=== PATIENT | male | born 1980 | race Caucasian/White ===

== ENCOUNTER 2017-07-07 22:38 | Emergency (ER) | payer OTHER ==
[2017-07-07] MEDS ORDERED: ASPIRIN 81 MG TABLET, CHEWABLE PO ONE (22:50)
[2017-07-07] MEDS ORDERED: LORAZEPAM INJ 2 MG/1 ML VIAL IV ONE (23:01)
--- NOTE | 2017-07-07 23:19 | ER Document Report ---
ED Cardiac - General Mode of Arrival: Ambulatory Information source: Patient TRAVEL OUTSIDE OF THE [place] IN LAST 30 DAYS: No <JANESSA PERALES - Last Filed: 07/07/17 23:29> <JUAN C ZACARIAS - Last Filed: 07/08/17 03:16> - General Chief Complaint: Chest Pain Stated Complaint: CHEST PAIN Time Seen by Provider: 07/07/17 22:50 Notes: Patient is a 36 year old male that presents to the emergency department today with complaints of chest pain with a heart racing sensation. Patient states he was cleaning out his closet when these symptoms began. Patient states he did not have any bad thoughts or unusual findings in the closet that he could relate to causing this sensation. Patient denies nausea, vomiting, fevers, or chills. Patient states he has never been diagnosed with anxiety but he "knows he has it". Patient mentions drinking two glasses of wine prior to arrival. ( JANESSA PERALES) - Related Data Allergies/Adverse Reactions: No Known Allergies Allergy (Unverified 07/07/17 22:46) Past Medical History - General Information source: Patient - Social History Smoking Status: Never Smoker Cigarette use (# per day): No Frequency of alcohol use: None Drug Abuse: None Lives with: Family Family History: Reviewed & Not Pertinent Psychiatric Medical History: Reports: Hx Anxiety Surgical Hx: Negative <JANESSA PERALES - Last Filed: 07/07/17 23:29> Review of Systems - Review of Systems Constitutional: No symptoms reported EENT: No symptoms reported Cardiovascular: See HPI, Palpitations, Heart racing Respiratory: No symptoms reported Gastrointestinal: No symptoms reported Genitourinary: No symptoms reported Male Genitourinary: No symptoms reported Musculoskeletal: No symptoms reported Skin: No symptoms reported Hematologic/Lymphatic: No symptoms reported Neurological/Psychological: See HPI, Anxiety -: Yes All other systems reviewed and negative <JANESSA PERALES - Last Filed: 07/07/17 23:29> Physical Exam <JANESSA PERALES - Last Filed: 07/07/17 23:29> <JUAN C ZACARIAS - Last Filed: 07/08/17 03:16> - Vital signs Vitals: Pulse Ox 100 07/07/17 22:50 - Notes Notes: Physical Exam: General: Alert, appears well. HEENT: Normocephalic. Atraumatic. PERRL. Extraocular movements intact. Oropharynx clear. Neck: Supple. Non-tender. Respiratory: No respiratory distress. Clear and equal breath sounds bilaterally. Cardiovascular: Regular rhythm, tachycardic into the mid 120s, when monitor is turned away from the patient he drops into the low 100s. Abdominal: Normal Inspection. Non-tender. No distension. Normal Bowel Sounds. Back: Non-tender. No deformity or step off. Extremities: Moves all four extremities. Upper extremities: Normal inspection. Normal ROM. Lower extremities: Normal inspection. No edema. Normal ROM. Neurological: Normal cognition. AAOx4. Normal speech. Psychological: Appears anxious. Skin: Warm. Dry. Normal color. (JANESSA PERALES) Course - Laboratory Result Diagrams: 07/07/17 23:21 07/07/17 23:21 <JANESSA PERALES - Last Filed: 07/07/17 23:29> - Laboratory Result Diagrams: 07/07/17 23:21 07/07/17 23:21 <JUAN C ZACARIAS - Last Filed: 07/08/17 03:16> - Re-evaluation Re-evalutation: 07/08/17 03:16 The patient has atypical chest pain as the patient's chest pain is not suggestive of pulmonary embolus, cardiac ischemia, aortic dissection, or other serious etiology. Given the extremely low risk of these diagnoses further testing and evaluation for these possibilities does not appear to be indicated at this time. The patient has been instructed to return if the symptoms worsen or change in any way. Patient's vital signs improved. (JUAN C ZACARIAS) - Vital Signs Vital signs: Temp Pulse Resp BP Pulse Ox 97.8 F 122 H 20 136/86 H 98 07/08/17 02:01 07/07/17 22:54 07/08/17 02:01 07/08/17 02:01 07/08/17 02:01 - Laboratory Laboratory results interpreted by me: 07/07/17 07/08/17 23:21 01:03 Creatinine 1.43 H Est GFR (Non-Af Amer) 56 L Total Bilirubin 1.4 H ALT 83 H Creatine Kinase 394 H Urine Urobilinogen 4.0 H Discharge <JANESSA PERALES - Last Filed: 07/07/17 23:29> <JUAN C ZACARIAS - Last Filed: 07/08/17 03:16> - Discharge Clinical Impression: Transient tachycardia, Nonspecific chest pain Condition: Good Disposition: HOME, SELF-CARE Instructions: Anxiety ([facility]), Chest Pain of Unclear Cause ([facility]), Palpitations ( Irregular or Rapid Heartrate) ([facility]) Additional Instructions: At this time your laboratory studies not show any signs of cardiac ischemia signs of heart damage lung damage. Your laboratory studies also did not show any signs of hyperthyroidism or other clear etiologies that would cause you to have increased heart rate. More likely due to underlying anxiety. Please take your hydroxyzine as prescribed. I would recommend possibly taking 1 tablet at nighttime to get a good night sleep to help out with your anxiety the next day. Return to ER symptoms worsen please make sure you drink plenty water as at the only abnormality we saw any laboratory studies with slight dehydration. Scribe Attestation: 07/08/17 03:16 I personally performed the services described in the documentation, reviewed and edited the documentation which was dictated to the scribe in my presence, and it accurately records my words and actions. (JUAN C ZACARIAS) Scribe Documentation - Scribe Written by Olga:: Olga Dietrich, 07/07/2017 [id number] acting as scribe for :: Basil <JANESSA PERALES - Last Filed: 07/07/17 23:29>
--- NOTE | 2017-07-07 23:25 | RADIOLOGY REPORT (SQ) ---
EXAM DESCRIPTION: CHEST SINGLE VIEW COMPLETED DATE/TIME: 07/07/2017 11:03 pm REASON FOR STUDY: cp COMPARISON: None. EXAM PARAMETERS: NUMBER OF VIEWS: One view. TECHNIQUE: Single frontal radiographic view of the chest acquired. RADIATION DOSE: NA LIMITATIONS: None. FINDINGS: LUNGS AND PLEURA: No opacities, masses or pneumothorax. No pleural effusion. MEDIASTINUM AND HILAR STRUCTURES: No masses. Contour normal. HEART AND VASCULAR STRUCTURES: Heart normal in size. Normal vasculature. BONES: No acute findings. HARDWARE: None in the chest. OTHER: No other significant finding. IMPRESSION: NO ACUTE RADIOGRAPHIC FINDING IN THE CHEST. TECHNICAL DOCUMENTATION: JOB ID: [id number] [place]-72 2010 [employer]- All Rights Reserved
[2017-07-07 23:37] LABS: ABSOLUTE BASOPHILS # (AUTO) 0.1 10^3/uL (0.0-0.2); ABSOLUTE EOSINOPHILS # (AUTO) 0.1 10^3/uL (0.0-0.6); ABSOLUTE MONOCYTES (AUTO) 0.9 10^3/uL (0.1-1.4); ABSOLUTE NEUT (AUTO) 5.7 10^3/uL (1.7-8.2); BASOPHILS % (AUTO) 1.1 % (0-2); EOSINOPHILS % (AUTO) 1.3 % (0-6); HEMATOCRIT 41.5 % (37.9-51.0); HEMOGLOBIN 14.9 g/dL (13.5-17.0); LYMPHOCYTES % (AUTO) 30.6 % (13-45); MEAN CORPUSCULAR HEMOGLOBIN 32.7 pg (27.0-33.4); MEAN CORPUSCULAR HGB CONC 35.8 g/dL (32.0-36.0); MEAN CORPUSCULAR VOLUME 91 fl (80-97); MONOCYTES % (AUTO) 8.9 % (3-13); PLATELET COUNT 238 10^3/uL (150-450); RED BLOOD COUNT 4.55 10^6/uL (4.35-5.55); RED CELL DISTRIBUTION WIDTH 12.7 % (11.5-14.0); SEGMENTED NEUTROPHILS % (AUTO) 58.1 % (42-78); TOTAL CELLS COUNTED % (AUTO) 100 %; WHITE BLOOD COUNT 9.8 10^3/uL (4.0-10.5)
[2017-07-07 23:49] LABS: ALANINE AMINOTRANSFERASE 83 U/L (21-72); ALBUMIN 4.6 g/dL (3.5-5.0); ALKALINE PHOSPHATASE 75 U/L (38-126); ANION GAP 12 (5-19); ASPARTATE AMINO TRANSFERASE 39 U/L (17-59); BILIRUBIN,TOTAL 1.4 mg/dL (0.2-1.3); BLOOD UREA NITROGEN 19 mg/dL (7-20); CALCIUM 9.5 mg/dL (8.4-10.2); CARBON DIOXIDE 26 mmol/L (22-30); CHLORIDE 104 mmol/L (98-107); CREATINE KINASE 394 U/L (55-170); GLUCOSE 104 mg/dL (75-110); POTASSIUM 4.1 mmol/L (3.6-5.0); SODIUM 142.2 mmol/L (137-145); TOTAL PROTEIN 7.1 g/dL (6.3-8.2)
[2017-07-07 23:50] LABS: INTERNATIONAL RATION (INR) 0.91; PROTHROMBIN TIME 12.9 SEC (11.4-15.4)
[2017-07-08 00:01] LABS: CREATINE KINASE MB 1.95 ng/mL (<4.55)
[2017-07-08 00:02] LABS: D-DIMER < 0.27 ug/mL (0.00-0.50); TROPONIN I < 0.012 ng/mL
[2017-07-08 00:07] LABS: FREE T4 (FREE THYROXINE) 1.17 ng/dL (0.78-2.19)
[2017-07-08 00:21] LABS: THYROID STIMULATING HORMONE 2.67 uIU/mL (0.47-4.68)
[2017-07-08] MEDS ORDERED: NORMAL SALINE 1000 ML 1,000 ML IV ONE (00:38)
[2017-07-08 01:20] LABS: APPEARANCE,URINE CLEAR; BILIRUBIN,URINE NEGATIVE (NEGATIVE); COLOR,URINE YELLOW; GLUCOSE, URINE NEGATIVE (NEGATIVE); KETONES,URINE NEGATIVE (NEGATIVE); LEUKOCYTE ESTERASE,URINE NEGATIVE (NEGATIVE); NITRITE,URINE NEGATIVE (NEGATIVE); PROTEIN,URINE NEGATIVE (NEGATIVE); URINE SPECIFIC GRAVITY 1.027
[2017-07-08 02:08] LABS: URINE AMPHETAMINES SCREEN NEGATIVE; URINE BARBITURATES SCREEN NEGATIVE; URINE BENZODIAZEPINES SCREEN NEGATIVE; URINE COCAINE SCREEN NEGATIVE; URINE MARIJUANA (THC) SCREEN NEGATIVE; URINE METHADONE SCREEN NEGATIVE; URINE PHENCYCLIDINE SCREEN NEGATIVE
[2017-07-08 02:10] VITALS: BP 136/86
--- NOTE | 2017-07-08 13:21 | EKG REPORT ---
SEVERITY:- BORDERLINE ECG - SINUS TACHYCARDIA : Confirmed by: Ovidio Muñiz MD 08-Jul-2017 13:20:52
== END 2017-07-08 02:16 | disposition home or self-care (01) ==
LOC: ER 22:38
DX: R00.0 Tachycardia, unspecified (principal); R07.89 Other chest pain
CPT/HCPCS: 93005; 99285; 96361; 96374; 36415; 84439; 82553; 82550; 84443; 85025; 85610; 80053; 81001; 84484; 80307; 85379; 71045; 93010; J2060; J7030

== ENCOUNTER 2017-07-31 20:20 | Emergency (ER) | payer OTHER ==
[2017-07-31 20:44] VITALS: BP 150/83
[2017-07-31] MEDS ORDERED: ACETAMINOPHEN 325 MG TABLET PO ONE (21:17)
--- NOTE | 2017-07-31 21:18 | ER Document Report ---
HPI - HPI Patient complains to provider of: URI symptoms Pain Level: 4 Context: Sinus congestion, nonproductive cough. Patient states that he had this about a week ago but resolved in about yesterday afternoon he had return of symptoms with associated sore throat. He admits to runny nose and nonproductive cough. Denies any shortness of breath, dyspnea on exertion. Otherwise healthy male. Past Medical History - Social History Smoking Status: Never Smoker Family History: Reviewed & Not Pertinent Renal/ Medical History: Denies: Hx Peritoneal Dialysis Psychiatric Medical History: Reports: Hx Anxiety Vertical Provider Document - CONSTITUTIONAL Agree With Documented VS: Yes Notes: PHYSICAL EXAM GENERAL: Alert, interacts well. HEENT: NCAT, pale conjunctiva, extraocular movements intact, pupils PERRL. external ear normal, no evidence of external auditory canal tenderness, blood/ drainage, cerumen impaction, TM intact without evidence of effusion, bulging, injection, MMM, Uvula midline. Airway patent. No evidence of tonsillar enlargement, peritonsillar abscess, retropharyngeal abscess. LUNGS: Clear to auscultation bilaterally, no wheezes, rales, or rhonchi. No respiratory distress. HEART: Regular rate and rhythm. No murmurs, gallops, or rubs. ABDOMEN: Soft, nondistended, nontender. No guarding, rebound, or rigidity.. Bowel sounds present in all 4 quadrants. EXTREMITIES: Moves all 4 extremities spontaneously. No edema, radial and dorsalis pedis pulses 2/4 bilaterally. No cyanosis. NEUROLOGICAL: Alert and oriented x4. Normal speech. PSYCH: Normal affect, normal mood. SKIN: Warm, dry, normal turgor. No rashes or lesions noted. - INFECTION CONTROL TRAVEL OUTSIDE OF THE [place] IN LAST 30 DAYS: No - RESPIRATORY O2 Sat by Pulse Oximetry: 93 Course - Re-evaluation Re-evalutation: 07/31/17 21:53 Presentation is most consistent with a viral upper respiratory infection. Patient is overall well appearance, vitals within normal limits, well-hydrated. Patient denies any headache, neck pain, and has no evidence of meningismus on examination. Rapid strep is negative Lungs are clear bilaterally. No evidence of respiratory distress. Based on clinical exam and history, I do not suspect an acute pneumonia, meningitis, strep pharyngitis, or an acute encephalitis. No laboratory or imaging testing is indicated at this time. Will discharge patient with return precautions and followup recommendations. They are in agreement this plan have verbalized understanding return precautions. - Vital Signs Vital signs: Temp Pulse Resp BP Pulse Ox 100.1 F 95 20 150/83 H 93 07/31/17 20:43 07/31/17 20:43 07/31/17 20:43 07/31/17 20:43 07/31/17 20:43 Discharge - Discharge Clinical Impression: URI (upper respiratory infection) Qualifiers: URI type: unspecified viral URI Qualified Code(s): J06.9 - Acute upper respiratory infection, unspecified Condition: Good Disposition: HOME, SELF-CARE Additional Instructions: Your symptoms are most likely due to a viral infection it should resolve over the next 7-14 days. You should take [id number] guanfacine per bottle instructions to help thin the mucus. For nasal congestion: I would recommend that you get [id number]-[id number] oxymetazoline also known is afrin. Use only per bottle instructions and be sure to never use this for more than 3 days if you can develop severe rebound congestion. You may also use tylenol or ibuprofen as needed for aches and thorat discomfort. Please be sure to drink plenty of fluids and get rest. Return to the emergency department he began having difficulty breathing, chest pain, persistent vomiting, or any other symptoms that are concerning to you. He also benefit from an [id number] antihistamine such as Terri, Zyrtec or Claritin Forms: Elevated Blood Pressure
== END 2017-07-31 22:00 | disposition home or self-care (01) ==
LOC: ER 20:20
DX: J06.9 Acute upper respiratory infection, unspecified (principal)
CPT/HCPCS: 87070; 87077; 87880; 99283

== ENCOUNTER 2017-10-27 23:33 | Emergency (ER) | payer OTHER ==
[2017-10-27] MEDS ORDERED: IBUPROFEN 600 MG TABLET PO ONE (23:59)
[2017-10-27] MEDS ORDERED: DEXAMETHASONE SOD PHOS INJ 10 MG/1 ML VIAL IM ONE (23:59)
--- NOTE | 2017-10-28 01:21 | ER Document Report ---
ED General - General Chief Complaint: Numbness of Arm Stated Complaint: LEFT ARM NUMBNESS Time Seen by Provider: 10/27/17 23:51 Notes: Patient had neuropathy and would appear to be like a radial nerve distribution. Symptoms are actually worse when I pushed over his medial epicondyle somewhat atypical being that that usually affects the ulnar nerve however, it did reproduce his symptoms. He has good strength in his hand. He has no redness or swelling around the elbow or shoulder. He has no pain to palpation of the shoulder and had good range of motion of the shoulder. Suspect is all related to all the moving and heavy lifting the did give him a shot of Decadron. I informed take Motrin anti-inflammatories and to rest the elbow and left arm. Encouraged him follow-up with orthopedist if his symptoms are not improving. Patient agrees with plan will be discharged home. Patient did have concave up ST segment elevation on his EKG consistent with early repolarization abnormality. There is no reciprocal ST segment depression. I suspect that this was early repolarization abnormality however his previous EKG from several years ago did not have the same findings and therefore did obtain a troponin which was negative. I do not suspect coronary disease being that he has no chest pain and his troponin is normal. Dictation of this chart was performed using voice recognition software; therefore, there may be some unintended grammatical errors. TRAVEL OUTSIDE OF THE [place] IN LAST 30 DAYS: No - Related Data Allergies/Adverse Reactions: No Known Allergies Allergy (Unverified 07/07/17 22:46) Past Medical History - Social History Smoking Status: Unknown if Ever Smoked Family History: Reviewed & Not Pertinent Patient has suicidal ideation: No Patient has homicidal ideation: No Renal/ Medical History: Denies: Hx Peritoneal Dialysis Psychiatric Medical History: Reports: Hx Anxiety Past Surgical History: Reports: Hx Appendectomy, Hx Cholecystectomy Physical Exam - Vital signs Vitals: Temp Pulse Resp BP Pulse Ox 97.4 F 95 12 160/86 H 100 10/27/17 23:41 10/27/17 23:41 10/27/17 23:41 10/27/17 23:41 10/27/17 23:41 Course - Vital Signs Vital signs: Temp Pulse Resp BP Pulse Ox 98.7 F 58 L 16 137/83 H 97 10/28/17 02:23 10/28/17 02:23 10/28/17 02:23 10/28/17 02:23 10/28/17 02:23 - EKG Interpretation by Me Additional EKG results interpreted by me: 10/28/17 01:19 EKG is reviewed and interpreted by me. EKG shows sinus rhythm with rate of 62 bpm. Patient has concave up ST segment elevation consistent with early repolarization abnormality. No reciprocal ST segment depressions. LA interval , QRS duration, QTc intervals are within normal range. Old EKG for comparison is from July 07, 2017. Discharge - Discharge Clinical Impression: Left arm numbness, Medial epicondylitis of left elbow Condition: Good Disposition: HOME, SELF-CARE Additional Instructions: Please do not do any heavy weight lifting or recurrent exercises involving your left elbow until your symptoms have resolved. please follow up with the orthopedist surgeon. Please return to the ER immediately if you have weakness into your have, chest pain, or feel unwell. Forms: Return to Work Referrals: PEARL JOHNSON MD [ACTIVE STAFF] - Follow up in 3-5 days
[2017-10-28 02:24] VITALS: BP 137/83
--- NOTE | 2017-10-28 07:34 | EKG REPORT ---
SEVERITY:- BORDERLINE ECG - SINUS RHYTHM : Confirmed by: Ovidio Muñiz MD 28-Oct-2017 07:33:42
== END 2017-10-28 02:24 | disposition home or self-care (01) ==
LOC: ER 23:33
DX: R20.0 Anesthesia of skin (principal); M77.02 Medial epicondylitis, left elbow; Z90.49 Acquired absence of other specified parts of digestive tract
CPT/HCPCS: 93005; 99284; 96372; 36415; 84484; 93010; J1100